=== PATIENT | female | born 1980 | race Two or more races ===

== ENCOUNTER 2019-05-11 13:25 | Emergency (ER) | payer OTHER ==
[2019-05-11 14:03] VITALS: BP 134/92; PULSE 86; TEMP 98.6; BMI 37.2
--- NOTE | 2019-05-11 14:40 | PDOC ---
History of Present Illness - General Chief Complaint: Cold Symptoms Stated Complaint: COUGH/FEVER Time Seen by Provider: 05/11/19 14:17 History Source: Patient Exam Limitations: Clinical Condition - History of Present Illness Initial Comments: 05/11/19 14:41 Patient with no significant past medical history present with complaint of one- week history of persistent cough with yellow sputum, nasal congestion, runny nose and malaise. Patient reported was having fevers with last fever 2 days ago of 101 F. Denies nausea, vomiting, abdominal pain, diarrhea, constipation. Denies any other symptoms. Patient has not taken anything for symptoms Is this a multiple visit Asthma Patient?: No Timing/Duration: 1 week Past History - Past Medical History Allergies/Adverse Reactions: Allergies Allergy/AdvReac Type Severity Reaction Status Date / Time ibuprofen [From Motrin] Allergy Verified 05/11/19 14:00 Penicillins Allergy Verified 05/11/19 14:01 Home Medications: Ambulatory Orders Azithromycin [Zithromax 250mg Tablets -] 250 mg PO UTDICT #6 tab 05/11/19 Benzonatate [Tessalon Pearls -] 100 mg PO Q8H PRN #21 capsule 05/11/19 Ipratropium [place] 2 spray NS BID PRN 5 Days #1 spray 05/11/19 - Psycho Social/Smoking Cessation Hx Smoking History: Current some day smoker Number of Cigarettes Smoked Daily: 3 Information on smoking cessation initiated: No Hx Alcohol Use: No Drug/Substance Use Hx: No Review of Systems - Review of Systems Able to Perform ROS?: Yes Is the patient limited Nigerien proficient: No Constitutional: Yes: Chills, Fever, Malaise HEENTM: Yes: Symptoms Reported, See HPI, Nose Congestion. No: Eye Pain, Blurred Vision, Tearing, Recent change in vision, Double Vision, Cataracts, Ear Pain, Ocular Prothesis, Ear Discharge, Nose Pain, Tinnitus, Nose Bleeding, Hearing Loss, Throat Pain, Throat Swelling, Mouth Pain, Dental Problems, Difficulty Swallowing, Mouth Swelling, Other Respiratory: Yes: Symptoms reported, See HPI, Cough, Productive cough. No: Orthopnea, Shortness of Breath, SOB with Exertion, SOB at Rest, Stridor, Wheezing, Hemoptysis, Other Cardiac (ROS): No: Symptoms Reported, See HPI, Chest Pain, Edema, Irregular Heart Rate, Lightheadedness, Palpitations, Syncope, Chest Tightness, Other ABD/GI: No: Symptoms Reported, See HPI, Constipated, Diarrhea, Nausea, Vomiting , Abdominal cramping All Other Systems: Reviewed and Negative *Physical Exam - Vital Signs Last Vital Signs Temp Pulse Resp BP Pulse Ox 98.6 F 86 20 134/92 99 05/11/19 14:01 05/11/19 14:01 05/11/19 14:01 05/11/19 14:01 05/11/19 14:01 - Physical Exam 05/11/19 14:43 GENERAL: Well developed, well nourished. Awake and alert. No acute distress. HEENT: Normocephalic, atraumatic. PERRLA, EOMI. No conjunctival pallor. Sclera are non-icteric. Moist mucous membranes. Oropharynx is clear. NECK: Supple. Full ROM. CARDIOVASCULAR: Regular rate and rhythm. No murmurs, rubs, or gallops. Distal pulses are 2+ and symmetric. PULMONARY: No evidence of respiratory distress. Lungs clear to auscultation bilaterally. No wheezing, rales or rhonchi. ABDOMINAL: Soft. Non-tender. Non-distended. No rebound or guarding. No organomegaly. Normoactive bowel sounds. MUSCULOSKELETAL Normal range of motion at all joints. SKIN: Warm and dry. Normal capillary refill. No rashes. No cyanosis. NEUROLOGICAL: Alert, awake, appropriate. Gait is normal without ataxia. PSYCHIATRIC: Cooperative. Good eye contact. Appropriate mood General Appearance: Yes: Nourished, Appropriately Dressed. No: Apparent Distress Medical Decision Making - Medical Decision Making 05/11/19 14:41 Patient with no significant past medical history present with complaint of one- week history of persistent cough with yellow sputum, nasal congestion, runny nose and malaise. Patient reported was having fevers with last fever 2 days ago of 101 F. Denies nausea, vomiting, abdominal pain, diarrhea, constipation. Denies any other symptoms. Patient has not taken anything for symptoms Clinical exam unremarkable. Lungs clear to auscultation bilateral. Patient afebrile and in no acute distress. Patient symptoms likely URI and stable for patient management Tessalon Perles as needed for cough and Atrovent nasal spray for nasal congestion but given symptoms of persisting symptoms over a week, will give Z-Roger antibiotics for possible bacterial infection with advised to increase fluid intake and follow- up with PCP Discharge - Discharge Information Problems reviewed: Yes Clinical Impression/Diagnosis: URI with cough and congestion, Nasal congestion Condition: Stable Disposition: HOME - Admission No - Additional Discharge Information Prescriptions: Azithromycin [Zithromax 250mg Tablets -] 250 mg PO UTDICT #6 tab Benzonatate [Tessalon Pearls -] 100 mg PO Q8H PRN #21 capsule PRN Reason: Cough Ipratropium [place] 2 spray NS BID PRN 5 Days #1 spray PRN Reason: nasal congestion - Follow up/Referral Referrals: ON STAFF,NOT [Primary Care Provider] - - Patient Discharge Instructions Patient Printed Discharge Instructions: DI for Viral Upper Respiratory Infection -- Adult Additional Instructions: Take prescribed medication as prescribed as your symptoms likely from upper respiratory infection. Increase fluid intake. Follow-up with primary care as needed - Post Discharge Activity
== END 2019-05-11 15:00 | disposition home or self-care (01) ==
LOC: JERFT 13:25
DX: J06.9 Acute upper respiratory infection, unspecified (principal)
CPT/HCPCS: 99283-25

== ENCOUNTER 2023-04-07 11:42 | Emergency (ER) | payer OTHER ==
[2023-04-07 11:49] VITALS: BP 152/98; PULSE 79; RESP 20; TEMP 98.3; BMI 39.0
== END 2023-04-07 14:00 | disposition home or self-care (01) ==
LOC: JERFT 11:42
DX: R50.9 Fever, unspecified (principal); R09.81 Nasal congestion; R21 Rash and other nonspecific skin eruption; J00 Acute nasopharyngitis [common cold]; Z20.822 Contact with and (suspected) exposure to COVID-19
CPT/HCPCS: 0241U-QW; 99283-25

== ENCOUNTER 2023-06-17 16:27 | Emergency (ER) | payer OTHER ==
[2023-06-17 16:38] VITALS: BP 145/94; PULSE 94; RESP 18; TEMP 98.5; BMI 39.4
[2023-06-17] MEDS: ACETAMINOPHEN 500 MG TABLET (FP) PO ONE (18:12)
[2023-06-17] MEDS ORDERED: ACETAMINOPHEN 500 MG TABLET (FP) ONE (18:12)
== END 2023-06-17 18:27 | disposition home or self-care (01) ==
LOC: JERFT 16:27
DX: R05.9 Cough, unspecified (principal); J02.9 Acute pharyngitis, unspecified
CPT/HCPCS: 87651; 99283-25